=== PATIENT | male | born 1975 | race Asian ===

== ENCOUNTER 2020-03-07 22:31 | Emergency (ER) | payer BC ==
[~2020-03-07] VITALS: Ht 175.3 cm; Wt 88.5 kg
[2020-03-07 22:40] VITALS: BP 151/80
--- NOTE | 2020-03-07 22:40 | NUR ---
ED Nurse Note: Patient presents to the ED for c/o laceration to L hand s/p dog bite around 2029. Patient states the dog is his own personal dog and all the dog's vaccines are UTD. Patient is able to move fingers on L hand. AAOX4, breathing is normal and unlabored. No active bleeding from wound.
[2020-03-07] MEDS ORDERED: Augmentin 875mg Tab ORAL ONE (22:45)
[2020-03-07] MEDS ORDERED: Tetanus/Diptheria/Pertussis IM ONE (22:45)
--- NOTE | 2020-03-07 22:46 | Emergency Room Report ---
History of Present Illness General Chief Complaint: Animal Bite Source: Patient Present Illness HPI This is a 44-year-old male with no past medical history. He presents with complaint of dog bite to his left hand. Onset just prior to arrival. Patient was bit by his dog. Patient said that his dog has issue with its paw and he try to put a cover on it. In the process of doing so, his dog bit him. He susta ined a laceration to the dorsum of his left hand. No other injury. Tetanus is unknown. No active bleeding. No fever or chills. No nausea no vomiting. Movement made it worse. Rest made it better. Allergies: Coded Allergies: No Known Allergies (Unverified , 03/07/20) COVID-19 Screening Contact w/high risk pt: No Experienced COVID-19 symptoms?: No COVID-19 Testing performed [employer] QU[employer] CONSULTANT: No Patient History Past Medical History: see triage record, old chart reviewed Past Surgical History: none Pertinent Family History: none Social History: Denies: smoking Immunizations: other Reviewed Nursing Documentation: PMH: Agreed; PSxH: Agreed Nursing Documentation-PMH Past Medical History: No Stated History Review of Systems Eye: Denies: eye pain, blurred vision ENT: Denies: ear pain, nose congestion, throat swelling Respiratory: Denies: cough, shortness of breath Cardiovascular: Denies: chest pain, palpitations Gastrointestinal: Denies: abdominal pain, diarrhea, nausea, vomiting Musculoskeletal: Denies: back pain, joint pain Skin: Denies: rash Neurological: Denies: headache, numbness Endocrine: Denies: increased thirst, increased urine Hematologic/Lymphatic: Denies: easy bruising All Other Systems: negative except mentioned in HPI Physical Exam Vital Signs Date Time Temp Pulse Resp B/P (MAP) Pulse Ox O2 Delivery O2 Flow Rate FiO2 03/07/20 22:36 98.4 57 16 151/80 (103) 99 Room Air Vitals with high blood pressure Sp02 EP Interpretation: reviewed, normal General Appearance: well appearing, no apparent distress, alert Head: normocephalic, atraumatic Eyes: bilateral eye PERRL, bilateral eye EOMI ENT: hearing grossly normal, normal pharynx Neck: full range of motion, supple, no meningismus Respiratory: chest non-tender, lungs clear, normal breath sounds Cardiovascular #1: regular rate, rhythm, no murmur Gastrointestinal: normal bowel sounds, non tender, no mass, no organomegaly, no bruit, non-distended Musculoskeletal: back normal, normal range of motion, gait/station normal, other - Left hand: Patient has a 5 cm laceration dorsum of the left hand at the base of the index finger and thumb area. There is some muscle involvement. No tendon laceration. Psychiatric: mood/affect normal Procedures Laceration/Wound Repair Laceration/Wound Repair : Consent: Verbal Wound Location: upper extremity Wound's Depth, Shape: into muscle, irregular, flap Wound Length (cm): 5 Wound Explored: clean Irrigated w/ Saline (ccs): 1000 Anesthesia: 1% Lidocaine Volume Anesthetic (ccs): 5 Wound Debrided: minimal Wound Repaired With: sutures Suture Size/Type: 4:0, proline Number of Sutures: 3 Patient Tolerated: Well Complications: None Medical Decision Making Diagnostic Impression: Primary Impression: Bite by animal Additional Impression: Laceration of hand, complicated Qualified Codes: S61.412A - Laceration without foreign body of left hand, initial encounter ER Course This patient presents with a left hand laceration from dog bite. It did involve some muscle laceration. However there is no tendon laceration or vessel injury. I ranges fingers to range of motion and did not see any evidence of gross injury. I revise the wound and placed 3 interrupted 4-0 Prolene suture. Explained to the patient that the wound is not closed completely because of increased risk for infection. Wound edge closely approximated. If no infection in a few days, this wound can be closed or revised later. Last Vital Signs Date Time Temp Pulse Resp B/P (MAP) Pulse Ox O2 Delivery O2 Flow Rate FiO2 03/07/20 22:36 98.4 57 16 151/80 (103) 99 Room Air Status: improved Disposition: HOME, SELF-CARE Condition: Stable Scripts Ibuprofen* (MOTRIN*) 600 Mg Tablet 600 MG ORAL Q6H PRN for For Pain, #30 TAB 0 Refills Prov: Valentin Joshua MD 03/07/20 Amoxicillin/Potassium Clav 875-125* (AUGMENTIN 875-125 TABLET*) 1 Each Tablet 1 TAB ORAL TWICE A DAY, #14 TAB Prov: Valentin Joshua MD 03/07/20 Additional Instructions: Keep wound clean. Follow-up with your doctor in 2 to 3 days for recheck. Your wound can be closed at a later date if there is no evidence of infection. Return if symptoms worsen. Sutures out in 7 to 10 days. Valentin Joshua MD Mar 07, 2020 22:46
--- NOTE | 2020-03-07 22:53 | NUR ---
ED Nurse Note: ERMD bedside for laceration repair.
[2020-03-07] MEDS ORDERED: IBUPROFEN600 M1 ORAL (23:12)
[2020-03-07] MEDS ORDERED: AUGMENTIN 875-1 EAC1 ORAL (23:12)
[2020-03-07] MEDS ORDERED: Neosporin Oint Ud Pkt TOPIC ONE (23:15)
[2020-03-07 23:20] VITALS: BP 135/78
--- NOTE | 2020-03-07 23:20 | NUR ---
ER DISCHARGE NOTE: Patient is cleared to be discharged per ERMD, pt is aox4, on room air, with stable vital signs. pt was given dc and prescription instructions, pt was able to verbalize understanding, pt id band removed. pt is able to ambulate with steady gait. pt took all belongings.
== END 2020-03-07 23:20 | disposition home or self-care (01) ==
LOC: EMR 22:48
DX: S61.452A Open bite of left hand, initial encounter (principal); S61.412A Laceration without foreign body of left hand, initial encounter; Z23 Encounter for immunization
CPT/HCPCS: 90471; 90715; 99283